=== PATIENT | male | born 1965 | race American Indian/Alaskan Native ===

== ENCOUNTER 2019-05-24 21:11 | Emergency (ER) | payer OTHER ==
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
[2019-05-25 02:05] VITALS: BP 142/84
== END 2019-05-25 01:40 | disposition home or self-care (01) ==
LOC: ED 21:11
DX: S46.812A Strain of other muscles, fascia and tendons at shoulder and upper arm level, left arm, initial encounter (principal); M25.542 Pain in joints of left hand; R51 Headache; I10 Essential (primary) hypertension; V49.49XA Driver injured in collision with other motor vehicles in traffic accident, initial encounter; Y93.89 Activity, other specified; Y92.410 Unspecified street and highway as the place of occurrence of the external cause; Y99.8 Other external cause status